=== PATIENT | male | born 1970 | race American Indian/Alaskan Native ===

== ENCOUNTER 2016-10-07 08:40 | Emergency (ER) | payer OTHER ==
[2016-10-07 09:16] VITALS: BP 137/101
[2016-10-07] MEDS ORDERED: MOTRIN PO ONE (09:58)
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
== END 2016-10-07 10:30 | disposition left against medical advice (07) ==
LOC: ED 08:40
DX: S96.911A Strain of unspecified muscle and tendon at ankle and foot level, right foot, initial encounter (principal); V49.9XXA Car occupant (driver) (passenger) injured in unspecified traffic accident, initial encounter; Y93.89 Activity, other specified; Y99.9 Unspecified external cause status; Y92.89 Other specified places as the place of occurrence of the external cause
CPT/HCPCS: 99283